=== PATIENT | female | born 1975 | race Caucasian/White ===

== ENCOUNTER → 2017-01-31 | Outpatient (CLI) | payer BC ==
[2017-01-31 11:04] LABS: CHLORIDE,CL 105 mmol/L (98-110); SODIUM,NA 138 mmol/L (136-146)
--- NOTE | 2017-02-01 15:11 | US ---
EXAMINATION: Right upper quadrant ultrasound HISTORY: Gallstone COMPARISON: None TECHNIQUE: Grayscale and color Doppler images obtained of the right upper quadrant. FINDINGS: The visualized pancreas appears normal. The liver is normal in contour and echogenicity wi thout a focal hepatic mass. The gallbladder wall thickness is normal. Small gallstones are noted wit hin the gallbladder. No pericholecystic fluid. The common bile duct measures 2 mm. The sonographic M urphy sign is reported mildly positive. The right kidney measures 10.7 cm [id number] without evide nce of hydronephrosis. IMPRESSION: 1. Cholelithiasis with a mildly positive sonographic Meredith sign. However there is no gallbladder wa ll thickening or pericholecystic fluid.
== END ==
LOC: MW.US 09:00
PROVIDERS: ATTEND Surgery
DX: K80.20 Calculus of gallbladder without cholecystitis without obstruction (principal)
CPT/HCPCS: 36415; 76705; 76705-26; 80053

== ENCOUNTER 2017-03-07 06:25 | Day surgery (SDC) | payer BC ==
[~2017-03-07 06:25] MED LIST: Lactated Ringers 1,000 ML IV SCH; Sodium Chloride 0.9% 10 ML Syringe FLUSH PRN; Sodium Chloride 0.9% 2.5 ML Syringe FLUSH PRN; ceFAZolin 2 GM in Premix Bag 1 BAG IV ONE
[2017-03-07] MEDS ORDERED: Scopolamine 1.5 MG Transdermal Patch TRDERM PRN (06:56)
--- NOTE | 2017-03-07 06:58 | PCM.PREANE ---
Preanesthetic Assessment - Anesthesia/Transfusion/Family Hx Anesthesia History: Prior Anesthesia Without Reaction Family History of Anesthesia Reaction: No Transfusion History: Prior Transfusion Without Reaction - Review of Systems General: No Symptoms Pulmonary: No Symptoms Cardiovascular: No Symptoms Gastrointestinal: Abdominal pain Neurological: No Symptoms Other: Reports: None - Physical Assessment O2 Sat by Pulse Oximetry: 100 Respiratory Rate: 16 Vital Signs: Last Vital Signs Temp 36.8 C 03/07/17 06:54 Pulse 59 L 03/07/17 06:54 Resp 16 03/07/17 06:54 BP 126/70 03/07/17 06:54 Pulse Ox 100 03/07/17 06:54 Height: 1.63 m Weight: 78.925 kg ASA Class: 2 Mental Status: Alert & Oriented x3 Airway Class: Mallampati = 2 Dentition: Reports: Normal Dentition Thyro-Mental Finger Breadths: 3 Mouth Opening Finger Breadths: 3 ROM/Head Extension: Full Lungs: Clear to auscultation, Normal respiratory effort Cardiovascular: Regular Rate, Regular Rhythm - Lab Values: Laboratory Last Values Urine HCG, Qual NEGATIVE (NEGATIVE) 03/07/17 06:38 - Allergies Allergies/Adverse Reactions: Allergies Allergy/AdvReac Type Severity Reaction Status Date / Time No Known Allergies Allergy Verified 03/02/17 13:17 - Blood Blood Available: No - Anesthesia Plan Pre-Op Medication Ordered: None - Acknowledgements Anesthesia Type Planned: General Anesthesia Pt an Appropriate Candidate for the Planned Anesthesia: Yes Alternatives and Risks of Anesthesia Discussed w Pt/Guardian: Yes Pt/Guardian Understands and Agrees with Anesthesia Plan: Yes PreAnesthesia Questionnaire Other HEENT History: wears glasses/contacts Cardiovascular History: Reports: None Respiratory History: Reports: None Gastrointestinal History: Reports: Cholelithiasis Genitourinary History: Reports: None 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 Musculoskeletal History: Reports: Fracture Other Musculoskeletal History: right ankle Neurological History: Reports: None Psychiatric History: Reports: Depression Endocrine/Metabolic History: Reports: None Hematologic History: Reports: Anemia, Blood transfusion(s) Immunologic History: Reports: None Oncologic (Cancer) History: Reports: None Dermatologic History: Reports: None - Past Surgical History Head Surgeries/Procedures: Reports: None HEENT Surgical History: Reports: None Cardiovascular Surgical History: Reports: None Respiratory Surgical History: Reports: None GI Surgical History: Reports: Bariatric procedure Female Surgical History: Reports: Oophorectomy Endocrine Surgical History: Reports: None Neurological Surgical History: Reports: None Musculoskeletal Surgical History: Reports: ORIF Other Musculoskeletal Surgeries/Procedures:: right ankle (has metal plate) Oncologic Surgical History: Reports: None - SUBSTANCE USE Smoking Status *Q: Never Smoker Recreational Drug Use History: No - HOME MEDS Home Medications: Home Meds Citalopram Hydrobromide [Celexa] 20 mg PO DAILY 03/02/17 [History] Ferrous Gluconate [Iron] 240 mg PO DAILY 03/02/17 [History] - CURRENT (IN HOUSE) MEDS Current Meds: Current Medications Lactated Ringer's (Ringers, Lactated) 1,000 mls @ 125 mls/hr IV ASDIRECTED GUANAKITO Last Admin: 03/07/17 06:55 Dose: 125 mls/hr Sodium Chloride (Saline Flush) 10 ml FLUSH ASDIRECTED PRN PRN Reason: Keep Vein Open Sodium Chloride (Saline Flush) 2.5 ml FLUSH ASDIRECTED PRN PRN Reason: Keep Vein Open Discontinued Medications Cefazolin Sodium/Dextrose 2 gm (/ Premix) 50 mls @ 100 mls/hr IV ONETIME ONE Stop: 03/06/17 13:34
[2017-03-07] MEDS ORDERED: Dexamethasone 4 MG/ML 5 ML MDV ONE (07:12)
[2017-03-07] MEDS ORDERED: Lidocaine 2% 5 ML SDV ONE (07:12)
[2017-03-07] MEDS ORDERED: Rocuronium 10 MG/ML 10 ML Syringe ONE (07:12)
[2017-03-07] MEDS ORDERED: Propofol 200 MG/20 ML SDV ONE (07:13)
[2017-03-07] MEDS ORDERED: fentaNYL 250 MCG/5 ML SDV ONE (07:13)
[2017-03-07] MEDS ORDERED: Midazolam 1 MG/ML 2 ML SDV ONE (07:13)
[2017-03-07] MEDS ORDERED: Bupivacaine 0.5% 30 ML SDV ONE (07:24)
[2017-03-07] MEDS ORDERED: HYDROmorphone 2 MG/ML Syringe ONE (08:21)
[2017-03-07] MEDS ORDERED: Neostigmine Methylsulfate 1 MG/ML 5 ML Syringe ONE (08:48)
--- NOTE | 2017-03-07 09:22 | PCM.OPNOTE ---
- General Post-Op/Procedure Note Date of Surgery/Procedure: 03/07/17 Operative Procedure(s): Laparoscopic cholecystectomy Findings: Mildly inflamed and grossly distended gallbladder. Omental adhesions to previous midline scar and to the gallbladder. Pre Op Diagnosis: Symptomatic cholelithiasis Post-Op Diagnosis: Same and chronic cholecystitis Anesthesia Technique: General ET tube Primary Surgeon: Chinyere Norris Fluid Replacement, Intraop: 2,100 Output, Urine Amount: 20 EBL in mLs: 10 Condition: Good
[2017-03-07] MEDS ORDERED: fentaNYL 100 MCG/2 ML SDV IVPUSH PRN (09:26)
[2017-03-07] MEDS ORDERED: Promethazine 12.5 MG Supp RECTAL PRN (09:26)
[2017-03-07] MEDS ORDERED: Acetaminophen/oxyCODONE 325-5 MG Tab PO ONE (11:46)
[2017-03-07 14:35] VITALS: BP 122/86
--- NOTE | 2017-03-07 18:15 | OR ---
SURGEON: ESTER VILLALBA MD DATE OF PROCEDURE: 03/07/2017 PREOPERATIVE DIAGNOSIS: Symptomatic cholelithiasis. POSTOPERATIVE DIAGNOSES: Symptomatic cholelithiasis and chronic cholecystitis. PROCEDURE PERFORMED: Laparoscopic cholecystectomy. ANESTHESIA: General endotracheal anesthesia. FLUIDS: 2100 mL crystalloid. ESTIMATED BLOOD LOSS: 10 mL. URINE OUTPUT: 20 mL. FINDINGS: Chronically inflamed and enlarged gallbladder. Intraabdominal adhesions to the previous midline scar. Omental adhesions to the gallbladder wall. COMPLICATIONS: None. 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 The patient presents with 1-2 months worth of colicky right upper quadrant pain that radiates to her back. The pain gets worse after meals. Right upper quadrant ultrasound showed evidence of cholelithiasis with no evidence of choledocholithiasis or active inflammation. The patient tried conservative measures with no relief in her symptoms. The decision was made then to proceed with removing her gallbladder for presumed symptomatic cholelithiasis. The patient and I discussed the procedure as well as expected perioperative course. We discussed both the laparoscopic and open procedures. I explained to her that with her past surgical history, she may have significant intraabdominal adhesions that may prevent me from performing this procedure laparoscopically. In the event that I cannot perform it safely laparoscopically, I would convert to open. The patient and I discussed the risks, including bleeding, infection, or damage to surrounding structures. The patient verbalized understanding and wished to proceed. PROCEDURE IN DETAIL: The patient was brought into the operating room and placed on the OR table in supine position. A time-out was completed verifying the patient's name, age, date of , allergies, and procedure to be performed. General endotracheal anesthesia was then induced. The left arm was tucked at the patient's side and a Rios catheter placed. The abdomen was then prepped and draped in the usual standard fashion. The patient had a very well healed midline scar from her previous bariatric procedure. I made a supraumbilical incision after anesthetizing the area with 0.5% Marcaine plain. Cautery was used to dissect down into the subcutaneous fat. Using S-retractors, I then bluntly dissected down to the level of the fascia. The fascia was then elevated with Harlan's and sharply incised using the Metzenbaum scissors. Upon entering the fascia, I noted omental fat. I flipped this gently away with my finger and was able to gain access into the abdomen. An 0 Vicryl suture was then used to place a [id number]-sy-tynye stitch within the fascia to be used to close it once the procedure was completed. I then placed a 12 mm blunt tip trocar through my fascial opening into the abdomen. I then insufflated the abdomen with carbon dioxide to a level of 13 mmHg. A 5 mm 30-degree scope was then inserted into the abdomen by myself as I was concerned about possible adhesions. Upon entering the abdomen with the scope, I noted there the trocar to be within some omentum. I gently directed the scope around this adhesed tissue and was able to adequately visualize the inside of the abdomen. The omentum itself was adhered along the midline where the patient's previous incision was. I inspected the area around my trocar insertion site and did not note any damage to any surrounding structures including bowel, which appeared to be well away from my initial site. I then placed three more 5 mm ports in the following locations. One in the epigastric area, one in the right subcostal area along the midclavicular line, and one along the right flank. These were all placed under direct visualization using 0.5% Marcaine to anesthetize the tracts. The gallbladder was then grasped with an atraumatic grasper placed through the right flank port and retracted cephalad. There were some omental and peritoneal adhesions to the gallbladder. Using gentle dissection, these were gently swept away. This allowed the gallbladder to be free from its surrounding attachments and retracted further cephalad. The infundibulum was then grasped with a 2nd atraumatic grasper placed through the right subcostal port. The infundibulum was then retracted inferiorly and laterally. This allowed exposure of the cystic artery and cystic duct. Using a Maria Ines dissector, I then gently dissected the peritoneum surrounding the cystic duct and artery until I was able to adequately visualize them and dissect them free from the surrounding tissue. Once the critical view was achieved clips were placed on the cystic duct and artery. They were both doubly clipped proximally and singly clipped distally and then transected. Next, the gallbladder was then removed from the liver bed using electrocautery. This was somewhat difficult given that the gallbladder itself was slightly edematous and there was some inflammation along the gallbladder fossa. Once the gallbladder was freed from the gallbladder fossa, it was placed in an EndoCatch bag and removed through the supraumbilical port site. The liver bed was then cauterized to obtain adequate hemostasis. Given the inflammation around this area, I decided to place a piece of Surgicel within the gallbladder fossa to help facilitate further hemostasis. The abdomen was irrigated with 1 L of normal saline until it ran clear. The operative site was rechecked again for hemostasis and it appeared to be achieved. The 5 mm ports were then removed under direct visualization and no bleeding was noted at the sites. The 12 mm port was removed and the abdomen was allowed to desufflate. The previously placed 0 Vicryl stitch was then tied down and no further fascial defect was noted. The supraumbilical port site was closed with interrupted 3-0 Vicryl in the subcutaneous fat and a running 4-0 Monocryl suture. The 5 mm port sites were closed with interrupted 4-0 Monocryl. Steri-Strips and sterile dressings were applied. All counts were complete and correct at the end of the case. The patient tolerated the procedure well and was taken to the PACU in stable condition. MARC ECHEVARRIA /[id number]
== END 2017-03-07 13:00 | disposition home or self-care (01) ==
LOC: MW.SDS 06:25
PROVIDERS: ATTEND Surgery
DX: K80.10 Calculus of gallbladder with chronic cholecystitis without obstruction (principal); F32.9 Major depressive disorder, single episode, unspecified; F41.9 Anxiety disorder, unspecified; Z98.84 Bariatric surgery status; Z98.890 Other specified postprocedural states; Z90.721 Acquired absence of ovaries, unilateral; Z79.899 Other long term (current) drug therapy
CPT/HCPCS: 47562; 81025; A9270; J1100; J1170; J2250; J3010; J7120; 00790; 88304; J2704